=== PATIENT | male | born 1970 | race Caucasian/White ===

== ENCOUNTER 2016-09-21 20:04 | Emergency (ER) | payer SELFPAY ==
[2016-09-21 20:45] LABS: ABSOLUTE EOSINOPHILS # (AUTO) 0.1 10^3/uL (0.0-0.6); ABSOLUTE LYMPHOCYTES (AUTO) 0.9 10^3/uL (0.5-4.7); ABSOLUTE MONOCYTES (AUTO) 0.5 10^3/uL (0.1-1.4); BASOPHILS % (AUTO) 0.9 % (0-2); EOSINOPHILS % (AUTO) 1.5 % (0-6); HEMATOCRIT 48.8 % (37.9-51.0); HEMOGLOBIN 16.9 g/dL (13.5-17.0); HGB HCT DIFFERENCE 1.9; LYMPHOCYTES % (AUTO) 15.7 % (13-45); MEAN CORPUSCULAR HEMOGLOBIN 35.5 pg (27.0-33.4); MEAN CORPUSCULAR HGB CONC 34.5 g/dL (32.0-36.0); MEAN CORPUSCULAR VOLUME 103 fl (80-97); MONOCYTES % (AUTO) 8.7 % (3-13); RED BLOOD COUNT 4.74 10^6/uL (4.35-5.55); RED CELL DISTRIBUTION WIDTH 12.9 % (11.5-14.0); SEGMENTED NEUTROPHILS % (AUTO) 73.2 % (42-78); WHITE BLOOD COUNT 5.4 10^3/uL (4.0-10.5)
[2016-09-21 21:00] LABS: ALANINE AMINOTRANSFERASE 40 U/L (21-72); ALBUMIN 3.2 g/dL (3.5-5.0); ALKALINE PHOSPHATASE 118 U/L (38-126); ANION GAP 12 (5-19); ASPARTATE AMINO TRANSFERASE 97 U/L (17-59); BILIRUBIN,DIRECT 1.1 mg/dL (0.0-0.3); BLOOD UREA NITROGEN 8 mg/dL (7-20); CALCIUM 8.6 mg/dL (8.4-10.2); CARBON DIOXIDE 20 mmol/L (22-30); CHLORIDE 104 mmol/L (98-107); CREATININE RESULT 0.54 mg/dL (0.52-1.25); GLUCOSE 131 mg/dL (75-110); MAGNESIUM 1.3 mg/dL (1.6-2.3); POTASSIUM 3.5 mmol/L (3.6-5.0); SODIUM 135.8 mmol/L (137-145); TOTAL PROTEIN 7.5 g/dL (6.3-8.2)
[2016-09-21 21:01] LABS: ALCOHOL < 10 mg/dL (NONE DETECTED)
[2016-09-21] MEDS ORDERED: MAGNESIUM OXIDE 400 MG TABLET PO ONE (21:59)
--- NOTE | 2016-09-21 22:11 | ER Document Report ---
[id number] SEIZURE Mode of Arrival: Medic Information source: Patient, Relative Notes: 46-year-old male history of ALS presents after a 5-10 second episode where his body tensed up became minimally responsive and bit his tongue. notes that he immediately came out of this episode and was groggy. This postictal state lasted about 5-10 minutes. Patient on arrival has no complaints at all denies any headaches or any other pain elsewhere. Patient does note that he drinks daily and drank today. Patient denies drinking less than normal. Patient denies any other medication use or discontinuation of - HPI Onset: Just prior to arrival Onset/Duration: Sudden Quality of pain: No pain Severity: Mild Pain Level: Denies Associated symptoms: Other Exacerbated by: Denies Relieved by: Denies Similar symptoms previously: No Recently seen / treated by doctor: No Past Medical History - Social History Smoking Status: Never Smoker Cigarette use (# per day): No Chew tobacco use (# tins/day): No Smoking Education Provided: No Frequency of alcohol use: Heavy Family History: Reviewed & Not Pertinent Past Surgical History: Reports: Hx Appendectomy - Immunizations Hx Diphtheria, Pertussis, Tetanus Vaccination: Yes - 7 yrs Review of Systems - Review of Systems Notes: REVIEW OF SYSTEMS: CONSTITUTIONAL : Denies fever, chills, or sweats. Denies recent illness. EENT: Biting tongue CARDIOVASCULAR: Denies chest pain. Denies palpitations or racing or irregular heart beat. Denies ankle edema. RESPIRATORY: Denies cough, cold, or chest congestion. Denies shortness of breath, difficulty breathing, or wheezing. GASTROINTESTINAL: Denies abdominal pain or distention. Denies nausea, vomiting , or diarrhea. Denies blood in vomitus, stools, or per rectum. Denies black, tarry stools. Denies constipation. GENITOURINARY: Denies difficulty urinating, painful urination, burning, frequency, blood in urine, or discharge. MUSCULOSKELETAL: Denies back or neck pain or stiffness. Denies joint pain or swelling. SKIN: Denies rash, lesions or sores. HEMATOLOGIC : Denies easy bruising or bleeding. LYMPHATIC: Denies swollen, enlarged glands. NEUROLOGICAL: Seizure like activity PSYCHIATRIC: Denies anxiety or stress. Denies depression, suicidal ideation, or homicidal ideation. ALL OTHER SYSTEMS REVIEWED AND NEGATIVE. Dictation was performed using Dragon voice recognition software PHYSICAL EXAMINATION: GENERAL: Well-appearing, well-nourished and in no acute distress. HEAD: Atraumatic, normocephalic. EYES: Pupils equal round and reactive to light, extraocular movements intact, sclera anicteric, conjunctiva are normal. ENT: Superficial tongue laceration on the right superior aspect of the tongue. NECK: Normal range of motion, supple without lymphadenopathy LUNGS: Breath sounds clear to auscultation bilaterally and equal. No wheezes rales or rhonchi. HEART: Regular rate and rhythm without murmurs ABDOMEN: Soft, nontender, nondistended abdomen. No guarding, no rebound. No masses appreciated. Musculoskeletal: Normal range of motion, no pitting or edema. No cyanosis. NEUROLOGICAL: Cranial nerves grossly intact. Normal speech, normal gait. Normal sensory, motor exams chronic weakness PSYCH: Normal mood, normal affect. SKIN: Warm, Dry, normal turgor, no rashes or lesions noted. Physical Exam - Vital signs Vitals: Temp 98.5 F 09/21/16 20:21 Course - Re-evaluation Re-evalutation: 09/21/16 22:09 Patient is instructed regarding seizure precautions, he is noted to be hypomagnesemia, this has been given to him. Patient is also been instructed about his other abnormal lab values and will be given GI follow-up. He has no abdominal pain or any other abdominal concerns at this time Patient has a neurologist and states he will follow-up with the neurologist. After performing a Medical Screening Examination, I estimate there is LOW risk for INTRACRANIAL HEMORRHAGE, ISCHEMIC CVA, MALIGNANT DYSRHYTHMIA, ACUTE CORONARY SYNDROME, MENINGITIS, PULMONARY EMBOLISM, or SEPSIS thus I consider the discharge disposition reasonable. The patient and I have discussed the diagnosis and risks, and we agree with discharging home with close follow-up with the understanding that symptoms and presentations can change. We also discussed returning to the Emergency Department immediately if new or worsening symptoms occur. We have discussed the symptoms which are most concerning (e.g., changing or worsening pain, weakness, vomiting, fever) that necessitate immediate return. 09/21/16 23:24 - Vital Signs Vital signs: Temp Pulse Resp BP Pulse Ox 98.3 F 18 147/91 H 95 09/21/16 22:00 09/21/16 22:01 09/21/16 22:00 09/21/16 22:01 - Laboratory Result Diagrams: 09/21/16 20:25 09/21/16 20:25 Laboratory results interpreted by me: 09/21/16 09/21/16 20:25 20:25 MCV 103 H MCH 35.5 H Plt Count 78 L Sodium 135.8 L Potassium 3.5 L Carbon Dioxide 20 L Glucose 131 H Magnesium 1.3 L Total Bilirubin 6.0 H Direct Bilirubin 1.1 H AST 97 H Albumin 3.2 L - Diagnostic Test Radiology reviewed: Image reviewed, Reports reviewed Discharge - Discharge Clinical Impression: Seizure, Hypomagnesemia, Elevated bilirubin Tongue injury Qualifiers: Encounter type: initial encounter Qualified Code(s): S09.93XA - Unspecified injury of face, initial encounter Condition: Stable Disposition: HOME, SELF-CARE Instructions: New Seizure ([facility]) Additional Instructions: You must be reevaluated for your magnesium level as well as your bilirubin. Return immediately if there is any other concerns Referrals: MARILU MEDELLIN MD [ACTIVE STAFF] - Follow up in 3-5 days
[2016-09-21 22:39] VITALS: BP 147/91
== END 2016-09-21 22:22 | disposition home or self-care (01) ==
LOC: ER 20:04
DX: R56.9 Unspecified convulsions (principal); S09.93XA Unspecified injury of face, initial encounter; E83.42 Hypomagnesemia; E80.6 Other disorders of bilirubin metabolism; X58.XXXA Exposure to other specified factors, initial encounter
CPT/HCPCS: 36415; 70450; 80053; 80307; 83735; 85025; 99284

== ENCOUNTER 2017-02-24 12:03 | Inpatient (IN) | payer BC, OTHER ==
[2017-02-24] MEDS ORDERED: NORMAL SALINE 1000 ML 1,000 ML IV ONE (12:26)
--- NOTE | 2017-02-24 12:30 | ER Document Report ---
ED Medical Screen (RME) - General Chief Complaint: Jaundice Stated Complaint: WEAKNESS Time Seen by Provider: 02/24/17 12:25 Mode of Arrival: Wheelchair Information source: Patient, Relative TRAVEL OUTSIDE OF THE [place] IN LAST 30 DAYS: No - HPI Patient complains to provider of: jaundice/weakness Onset: Other - relative states that pt. has been drinking alcohol heavily until yesterday. Has had jaundice for the past 3 weeks. - Related Data Allergies/Adverse Reactions: No Known Allergies Allergy (Verified 02/24/17 12:12) Past Medical History Renal/ Medical History: Denies: Hx Peritoneal Dialysis Past Surgical History: Reports: Hx Appendectomy - Immunizations Hx Diphtheria, Pertussis, Tetanus Vaccination: Yes - 7 yrs Physical Exam - Vital signs Vitals: Temp Pulse Resp BP Pulse Ox 97.5 F 71 16 102/49 L 97 02/24/17 12:11 02/24/17 12:11 02/24/17 12:11 02/24/17 12:11 02/24/17 12:11 Course - Vital Signs Vital signs: Temp Pulse Resp BP Pulse Ox 97.5 F 71 16 102/49 L 97 02/24/17 12:11 02/24/17 12:11 02/24/17 12:11 02/24/17 12:11 02/24/17 12:11
--- NOTE | 2017-02-24 13:14 | ER Document Report ---
ED General - General Chief Complaint: Jaundice Stated Complaint: WEAKNESS Time Seen by Provider: 02/24/17 12:25 Mode of Arrival: Wheelchair Notes: Patient is here to be evaluated for jaundice which he and the family say has been present for about 3 weeks. Patient is a heavy alcohol drinker, and just drank most recently yesterday. For the past 3 days, the patient has become confused and disoriented. Patient was told he has liver disease when he was seen here about 3 months ago for a seizure which was felt to be due to lack of alcohol in his system and a withdrawal symptom. Patient notes that he has abdominal distention. Patient has a history of ALS, diagnosed in 1997, so he has a slowly progressing variant. It has begun to affect his walking and use of his hands. TRAVEL OUTSIDE OF THE [place] IN LAST 30 DAYS: No - Related Data Allergies/Adverse Reactions: No Known Allergies Allergy (Verified 02/24/17 12:12) Home Medications: Current Home Medications Aspirin 1 tab PO DAILY 02/24/17 [History] Past Medical History - General Information source: Patient, Relative - Social History Smoking Status: Never Smoker Chew tobacco use (# tins/day): No Frequency of alcohol use: Heavy Drug Abuse: None Family History: Reviewed & Not Pertinent Neurological Medical History: Reports: Other - History of ALS, first diagnosed in 1997. Past Surgical History: Reports: Hx Appendectomy - Immunizations Hx Diphtheria, Pertussis, Tetanus Vaccination: Yes - 7 yrs Review of Systems - Review of Systems Notes: REVIEW OF SYSTEMS: CONSTITUTIONAL : Denies fever. EENT: Denies eye, ear, nose or mouth or throat pain or other symptoms. CARDIOVASCULAR: Denies chest pain. RESPIRATORY: Denies cough, chest congestion, or shortness of breath. GASTROINTESTINAL: Denies nausea, vomiting, or diarrhea. Abdomen is distended. Has not passed any blood in the stools or vomited any blood. GENITOURINARY: Denies difficulty or painful urinating, urinary frequency, blood in urine. MUSCULOSKELETAL: Denies back or neck pain. Denies joint pain or swelling. SKIN: Jaundiced skin and sclera. Denies rash or skin lesions. NEUROLOGICAL: Denies LOC or altered mental status. Denies headache. Denies sensory loss or motor deficits. ALL OTHER SYSTEMS REVIEWED AND NEGATIVE. Physical Exam - Vital signs Vitals: Temp Pulse Resp BP Pulse Ox 97.5 F 71 16 102/49 L 97 02/24/17 12:11 02/24/17 12:11 02/24/17 12:11 02/24/17 12:11 02/24/17 12:11 Interpretation: Normal - Notes Notes: PHYSICAL EXAMINATION: GENERAL: In no acute distress. Generalized jaundice color to the skin throughout the patient's body. Marked icterus of the sclera bilaterally. HEAD: Atraumatic, normocephalic. No head trauma. EYES: Pupils equal round and reactive to light, extraocular movements intact. ENT: oropharynx clear without exudates. Moist mucous membranes. NECK: Normal range of motion, supple. LUNGS: Breath sounds clear and equal bilaterally. HEART: Regular rate and rhythm without murmurs. ABDOMEN: Distended, most likely ascites. Unable to palpate the liver. No guarding or rebound. BACK: No tenderness throughout entire back. EXTREMITIES: Normal range of motion without pain. NEUROLOGICAL: Speech is somewhat slurred and at times confused. Gait not tested. Normal sensory, motor, and reflex exams. Awake, alert. Cranial nerves normal. SKIN: Warm, dry, no rashes. Course - Re-evaluation Re-evalutation: 02/24/17 20:10 Discussed patient with hospitalist who will admit the patient. - Vital Signs Vital signs: Temp Pulse Resp BP Pulse Ox 97.5 F 71 18 106/64 98 02/24/17 12:11 02/24/17 12:11 02/24/17 18:01 02/24/17 18:01 02/24/17 18:01 - Laboratory Result Diagrams: 02/24/17 13:35 02/24/17 13:35 Laboratory results interpreted by me: 02/24/17 02/24/17 02/24/17 12:45 13:35 13:35 Hgb 17.3 H MCV 103 H MCH 37.1 H MCHC 36.2 H RDW 15.3 H Plt Count 64 L Seg Neutrophils % 81.6 H Lymphocytes % 5.6 L Absolute Neutrophils 8.4 H PT Sodium 127.8 L Potassium 2.5 L* Chloride 86 L BUN 63 H Creatinine 5.53 H Est GFR ( Amer) 13 L Est GFR (Non-Af Amer) 11 L Calcium 8.3 L Total Bilirubin 46.7 H Direct Bilirubin 42.0 H AST 152 H Alkaline Phosphatase 232 H Ammonia Creatine Kinase 310 H Total Protein 9.0 H Albumin 3.4 L Lipase 547.9 H Urine Blood MODERATE H Urine Bilirubin MODERATE H Urine Urobilinogen 4.0 H 02/24/17 02/24/17 13:35 13:35 Hgb MCV MCH MCHC RDW Plt Count Seg Neutrophils % Lymphocytes % Absolute Neutrophils PT 28.0 H Sodium Potassium Chloride BUN Creatinine Est GFR ( Amer) Est GFR (Non-Af Amer) Calcium Total Bilirubin Direct Bilirubin AST Alkaline Phosphatase Ammonia 76.7 H Creatine Kinase Total Protein Albumin Lipase Urine Blood Urine Bilirubin Urine Urobilinogen - EKG Interpretation by Mn EKG shows normal: Sinus rhythm Rate: Normal Rhythm: NSR Discharge - Discharge Clinical Impression: Jaundice Liver failure Qualifiers: Liver failure chronicity: acute Hepatic coma status: without hepatic coma Qualified Code(s): K72.00 - Acute and subacute hepatic failure without coma Admitting Provider: Hospitalist Unit Admitted: [facility]
[2017-02-24 13:19] LABS: APPEARANCE,URINE CLOUDY; BILIRUBIN,URINE MODERATE (NEGATIVE); GLUCOSE, URINE NEGATIVE (NEGATIVE); KETONES,URINE NEGATIVE (NEGATIVE); LEUKOCYTE ESTERASE,URINE NEGATIVE (NEGATIVE); NITRITE,URINE NEGATIVE (NEGATIVE); PROTEIN,URINE NEGATIVE (NEGATIVE); URINE SPECIFIC GRAVITY 1.009
[2017-02-24 13:38] LABS: URINE BARBITURATES SCREEN NEGATIVE; URINE METHADONE SCREEN NEGATIVE; URINE OPIATES LOW NEGATIVE; URINE PHENCYCLIDINE SCREEN NEGATIVE
[2017-02-24 14:10] LABS: ALANINE AMINOTRANSFERASE 34 U/L (21-72); ALBUMIN 3.4 g/dL (3.5-5.0); ALKALINE PHOSPHATASE 232 U/L (38-126); ANION GAP 19 (5-19); ASPARTATE AMINO TRANSFERASE 152 U/L (17-59); BLOOD UREA NITROGEN 63 mg/dL (7-20); CALCIUM 8.3 mg/dL (8.4-10.2); CARBON DIOXIDE 23 mmol/L (22-30); CHLORIDE 86 mmol/L (98-107); CREATINE KINASE 310 U/L (55-170); CREATININE RESULT 5.53 mg/dL (0.52-1.25); GLUCOSE 96 mg/dL (75-110); LIPASE 547.9 U/L (23-300); SODIUM 127.8 mmol/L (137-145)
[2017-02-24 14:11] LABS: ABSOLUTE BASOPHILS # (AUTO) 0.1 10^3/uL (0.0-0.2); ABSOLUTE EOSINOPHILS # (AUTO) 0.2 10^3/uL (0.0-0.6); ABSOLUTE LYMPHOCYTES (AUTO) 0.6 10^3/uL (0.5-4.7); ABSOLUTE NEUT (AUTO) 8.4 10^3/uL (1.7-8.2); ALCOHOL < 10 mg/dL (NONE DETECTED); BASOPHILS % (AUTO) 0.9 % (0-2); EOSINOPHILS % (AUTO) 2.3 % (0-6); HEMATOCRIT 47.7 % (37.9-51.0); HEMOGLOBIN 17.3 g/dL (13.5-17.0); LYMPHOCYTES % (AUTO) 5.6 % (13-45); MEAN CORPUSCULAR HEMOGLOBIN 37.1 pg (27.0-33.4); MEAN CORPUSCULAR HGB CONC 36.2 g/dL (32.0-36.0); MEAN CORPUSCULAR VOLUME 103 fl (80-97); MONOCYTES % (AUTO) 9.6 % (3-13); RED BLOOD COUNT 4.65 10^6/uL (4.35-5.55); RED CELL DISTRIBUTION WIDTH 15.3 % (11.5-14.0); SEGMENTED NEUTROPHILS % (AUTO) 81.6 % (42-78); WHITE BLOOD COUNT 10.3 10^3/uL (4.0-10.5)
[2017-02-24 14:18] LABS: HGB HCT DIFFERENCE 4.2
[2017-02-24 14:24] LABS: CREATINE KINASE MB 2.84 ng/mL (<4.55); TROPONIN I < 0.012 ng/mL
[2017-02-24 14:59] LABS: POTASSIUM 2.5 mmol/L (3.6-5.0)
--- NOTE | 2017-02-24 15:03 | RADIOLOGY REPORT (SQ) ---
EXAM DESCRIPTION: CHEST PA/LAT COMPLETED DATE/TIME: 02/24/2017 2:48 pm REASON FOR STUDY: Jaundiced COMPARISON: May 2012 EXAM PARAMETERS: NUMBER OF VIEWS: two views TECHNIQUE: Digital Frontal and Lateral radiographic views of the chest acquired. RADIATION DOSE: NA LIMITATIONS: Patient has made a shallow inspiration. FINDINGS: LUNGS AND PLEURA: No opacities, masses or pneumothorax. No pleural effusion. MEDIASTINUM AND HILAR STRUCTURES: No masses or contour abnormalities. HEART AND VASCULAR STRUCTURES: Heart normal size. No evidence for failure. BONES: No acute findings. HARDWARE: None in the chest. OTHER: No other significant finding. IMPRESSION: NO SIGNIFICANT RADIOGRAPHIC FINDING IN THE CHEST. TECHNICAL DOCUMENTATION: JOB ID: [id number] [employer]- All Rights Reserved
[2017-02-24 15:13] LABS: BILIRUBIN,TOTAL 46.7 mg/dL (0.2-1.3)
[2017-02-24] MEDS ORDERED: POTASSIUM CHLORIDE 10 MEQ TABLET.SA PO ONE ×2 (15:31→16:21)
[2017-02-24] MEDS ORDERED: ONDANSETRON HCL INJ/PF 4 MG/2 ML SDV IV PRN (16:11)
[2017-02-24] MEDS ORDERED: DIAZEPAM 5 MG TABLET PO ONE (16:17)
[2017-02-24] MEDS ORDERED: FOLIC ACID 1 MG TABLET PO ONE (16:17)
[2017-02-24] MEDS ORDERED: THIAMINE HCL 100 MG TABLET PO ONE (16:17)
[2017-02-24] MEDS ORDERED: LORAZEPAM INJ 2 MG/1 ML VIAL IV PRN (16:18)
--- NOTE | 2017-02-24 16:22 | RADIOLOGY REPORT (SQ) ---
EXAM DESCRIPTION: CT ABD/PELVIS NO ORAL OR IV COMPLETED DATE/TIME: 02/24/2017 3:44 pm REASON FOR STUDY: abd pain/jaundice COMPARISON: None. TECHNIQUE: CT scan of the abdomen and pelvis performed without intravenous or oral contrast. Images reviewed with lung, soft tissue, and bone windows. Reconstructed coronal and sagittal MPR images revi ewed. All images stored on PACS. All CT scanners at this facility use dose modulation, iterative reconstruction, and/or weight based d osing when appropriate to reduce radiation dose to as low as reasonably achievable (ALARA). [facility]: Dose Right [facility]: CareDose [facility]: Dose Right [facility]: Teradose 4D [facility]: Smart HALO2CLOUD RADIATION DOSE: Up-to-date CT equipment and radiation dose reduction techniques were employed. CTDIv ol: 13.8 - 15.5 mGy. DLP: 1050 mGy-cm.mGy. LIMITATIONS: None. FINDINGS: LOWER CHEST: Subsegmental atelectasis in the left lower lobe. NON-CONTRASTED LIVER, SPLEEN, ADRENALS: Evaluation limited by lack of IV contrast. No identified sign ificant masses. PANCREAS: No masses. No peripancreatic inflammatory changes. GALLBLADDER: No identified stones by CT criteria. No inflammatory changes to suggest cholecystitis. RIGHT KIDNEY AND URETER: No suspicious masses. Assessment limited by lack of IV contrast. There is a nonobstructing 6 mm lower calyceal calculus. No hydronephrosis or hydroureter. LEFT KIDNEY AND URETER: No suspicious masses. Assessment limited by lack of IV contrast. No signifi cant calcifications. No hydronephrosis or hydroureter. AORTA AND RETROPERITONEUM: No aneurysm. No retroperitoneal masses or adenopathy. BOWEL AND PERITONEAL CAVITY: Questionable thickening of the wall of the colon. Considerable ascites is present. APPENDIX: Not identified. PELVIS, BLADDER, AND ABDOMINAL WALL:Urinary bladder is normal. Prostate gland and seminal vesicles a re unremarkable. BONES: Schmorl's node in the superior endplate of L4. OTHER: No other significant finding. IMPRESSION: 1. Subsegmental atelectasis in the left lower lobe. 2. Nonobstructing 6 mm lower calyceal calculus right kidney. 3. No ureteral stone or obstruction. 4. Considerable ascites is present. TECHNICAL DOCUMENTATION: JOB ID: [id number] Quality ID # [id number]: Final reports with documentation of one or more dose reduction techniques (e.g., Au tomated exposure control, adjustment of the mA and/or kV according to patient size, use of iterative reconstruction technique) 2010 [employer]- All Rights Reserved
[2017-02-24] MEDS ORDERED: PHYTONADIONE 5 MG TABLET PO ONE (16:45)
[2017-02-24] MEDS: LANSOPRAZOLE 15 MG TAB.RAP.DR PO SCH (16:52)
[2017-02-24] MEDS: NORMAL SALINE 1000 ML 1,000 ML IV PRN (16:53)
[2017-02-24] MEDS: LACTULOSE SYRUP 20 GM/30 ML UDCUP PO SCH (17:58)
[2017-02-24] MEDS: DIAZEPAM 5 MG TABLET PO SCH ×2 (17:58→23:40)
--- NOTE | 2017-02-24 19:12 | PDOC H&P ---
History of Present Illness Admission Date/PCP: 02/24/17 16:12 NO PCP History of Present Illness: MELIZA ARANDA is a 46 year old male with past medical history significant for ALS reportedly diagnosed in 1997 who presents to the emergency department with jaundice and lethargy. Patient's reports that he has been jaundiced for the last several weeks and the last 5 days he has been having extensive abdominal distention. His last drink was last night. He normally drinks between 3/4-1/3 of half gallon of vodka daily. She has noted significant weakness and falling. As well as alteration in mentation. History is primarily obtained from her as he is delayed with responding. He is referred to hospital service for liver failure. Past Medical History Past Medical History: Yuliana Gehrig's disease GI Medical History: Reports: Cirrhosis Past Surgical History Past Surgical History: Reports: Appendectomy Social History Smoking Status: Never Smoker Frequency of Alcohol Use: Heavy Amount of Alcoholic Beverages Per Day: 1/3-3/4 of 1/2 gal of vodka Hx Recreational Drug Use: No Hx Prescription Drug Abuse: No - Advance Directive Resuscitation Status: Do Not Resuscitate Surrogate healthcare decision maker:: , Nehemias Aranda Family History Family History: CAD, Other - als, etoh Parental Family History Reviewed: Yes Children Family History Reviewed: Yes Sibling(s) Family History Reviewed.: Yes Medication/Allergy Home Medications: Aspirin 1 tab PO DAILY 02/24/17 Allergies/Adverse Reactions: No Known Allergies Allergy (Verified 02/24/17 12:12) Review of Systems Constitutional: PRESENT: anorexia, weight gain. ABSENT: chills, fever(s), headache(s), weight loss Eyes: ABSENT: visual disturbances Ears: ABSENT: hearing changes Cardiovascular: PRESENT: dyspnea on exertion. ABSENT: chest pain, edema, orthropnea, palpitations Respiratory: PRESENT: dyspnea. ABSENT: cough, hemoptysis Gastrointestinal: PRESENT: abdominal pain, bloating, melena, nausea. ABSENT: constipation, diarrhea, dysphagia, hematemesis, hematochezia, vomiting Genitourinary: ABSENT: dysuria, hematuria Musculoskeletal: PRESENT: muscle weakness. ABSENT: joint swelling Integumentary: PRESENT: as per HPI. ABSENT: rash, wounds Neurological: PRESENT: abnormal movements, frequent falls. ABSENT: abnormal gait, abnormal speech, confusion, dizziness, focal weakness, syncope Psychiatric: ABSENT: anxiety, depression, homidical ideation, suicidal ideation Endocrine: ABSENT: cold intolerance, heat intolerance, polydipsia, polyuria Hematologic/Lymphatic: ABSENT: easy bleeding, easy bruising Physical Exam Vital Signs: Temp Pulse Resp BP Pulse Ox 97.5 F 71 18 132/73 H 97 02/24/17 12:11 02/24/17 12:11 02/24/17 17:01 02/24/17 17:01 02/24/17 17:01 General appearance: PRESENT: severe distress Head exam: PRESENT: atraumatic, normocephalic Eye exam: PRESENT: EOMI, PERRLA, scleral icterus Ear exam: PRESENT: normal external ear exam Mouth exam: PRESENT: dry mucosa, tongue midline Neck exam: ABSENT: JVD, lymphadenopathy, thyromegaly, tracheal deviation Respiratory exam: PRESENT: clear to auscultation keiko, symmetrical, unlabored. ABSENT: crackles, rales, rhonchi, tachypnea, wheezes Cardiovascular exam: PRESENT: RRR, +S1, +S2. ABSENT: diastolic murmur, gallop, rubs, systolic murmur Pulses: PRESENT: +1 pedal pulses bilateral Vascular exam: PRESENT: normal capillary refill GI/Abdominal exam: PRESENT: ascites, distended, hypoactive bowel sounds, soft. ABSENT: firm, guarding, hernia, mass, Iqbal's sign, organolmegaly, rebound, rigid, tenderness Rectal exam: PRESENT: deferred Extremities exam: PRESENT: full ROM, +2 edema. ABSENT: calf tenderness, clubbing Neurological exam: PRESENT: alert, awake, oriented to person, oriented to place , oriented to situation, ataxia, CN II-XII grossly intact. ABSENT: oriented to time, reflexes normal - asterixis, motor sensory deficit Psychiatric exam: PRESENT: appropriate affect, flat affect, normal mood. ABSENT : homicidal ideation, suicidal ideation Skin exam: PRESENT: dry, intact, jaundice, petechiae - on chest, palmar erythema , warm. ABSENT: cyanosis, rash Results Laboratory Results: 02/24/17 02/24/17 02/24/17 12:45 13:35 13:35 WBC 10.3 Hgb 17.3 H Hct 47.7 MCV 103 H MCH 37.1 H Plt Count 64 L INR Sodium 127.8 L Potassium 2.5 L* Chloride 86 L Carbon Dioxide 23 Anion Gap 19 BUN 63 H Creatinine 5.53 H Glucose 96 Calcium 8.3 L Magnesium Total Bilirubin 46.7 H Direct Bilirubin 42.0 H AST 152 H ALT 34 Alkaline Phosphatase 232 H Ammonia Creatine Kinase 310 H Troponin I Total Protein 9.0 H Albumin 3.4 L Lipase 547.9 H Urine Blood MODERATE H Urine Bilirubin MODERATE H Urine Urobilinogen 4.0 H Serum Alcohol < 10 02/24/17 02/24/17 02/24/17 13:35 13:35 13:35 WBC Hgb Hct MCV MCH Plt Count INR 2.46 Sodium Potassium Chloride Carbon Dioxide Anion Gap BUN Creatinine Glucose Calcium Magnesium Total Bilirubin Direct Bilirubin AST ALT Alkaline Phosphatase Ammonia 76.7 H Creatine Kinase Troponin I < 0.012 Total Protein Albumin Lipase Urine Blood Urine Bilirubin Urine Urobilinogen Serum Alcohol 02/24/17 13:35 WBC Hgb Hct MCV MCH Plt Count INR Sodium Potassium Chloride Carbon Dioxide Anion Gap BUN Creatinine Glucose Calcium Magnesium 2.3 Total Bilirubin Direct Bilirubin AST ALT Alkaline Phosphatase Ammonia Creatine Kinase Troponin I Total Protein Albumin Lipase Urine Blood Urine Bilirubin Urine Urobilinogen Serum Alcohol Impressions: Abdomen/Pelvis CT 02/24/17 12:27 IMPRESSION: 1. Subsegmental atelectasis in the left lower lobe. 2. Nonobstructing 6 mm lower calyceal calculus right kidney. 3. No ureteral stone or obstruction. 4. Considerable ascites is present. Chest X-Ray 02/24/17 13:09 IMPRESSION: NO SIGNIFICANT RADIOGRAPHIC FINDING IN THE CHEST. Assessment & Plan - Diagnosis (1) Liver failure Qualifiers: Liver failure chronicity: acute Hepatic coma status: without hepatic coma Qualified Code(s): K72.00 - Acute and subacute hepatic failure without coma Is this a current diagnosis for this admission?: YesPlan: Patient is in fulminant hepatic failure. Patient's meld score is 44. Have discussed the implications of this with his and patient who at this time elects to be DNR and does not want dialysis. Will place palliative care consult. (2) Hepatorenal syndrome Is this a current diagnosis for this admission?: YesPlan: Make an attempt at gentle hydration, however complex in the setting of ascites. Family does not want dialysis. (3) Acute renal failure Qualifiers: Acute renal failure type: unspecified Qualified Code(s): N17.9 - Acute kidney failure, unspecified Is this a current diagnosis for this admission?: Yes (4) Alcohol abuse Is this a current diagnosis for this admission?: YesPlan: Place patient on scheduled Valium and as needed Ativan. Thiamine, folic acid, and monitor for arrhythmia. (5) ALS (amyotrophic lateral sclerosis) Is this a current diagnosis for this admission?: YesPlan: Patient reports a diagnosis of ALS in 1997. Patient is having facial twitching. (6) Hepatic encephalopathy Is this a current diagnosis for this admission?: YesPlan: Place patient on lactulose 20 mg p.o. 3 times daily (7) Coagulopathy Is this a current diagnosis for this admission?: YesPlan: Place patient on oral vitamin K (8) Hyponatremia Is this a current diagnosis for this admission?: YesPlan: Secondary to intravascular volume depletion in the setting of ascites. (9) Hypokalemia Is this a current diagnosis for this admission?: YesPlan: Give oral repletion. 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
[2017-02-25] MEDS: LANSOPRAZOLE 15 MG TAB.RAP.DR PO SCH (05:21)
[2017-02-25] MEDS: DIAZEPAM 5 MG TABLET PO SCH ×4 (05:21→23:35)
[2017-02-25 05:37] LABS: HEMATOCRIT 42.6 % (37.9-51.0); MEAN CORPUSCULAR HEMOGLOBIN 37.3 pg (27.0-33.4); MEAN CORPUSCULAR HGB CONC 35.8 g/dL (32.0-36.0); MEAN CORPUSCULAR VOLUME 104 fl (80-97); RED BLOOD COUNT 4.09 10^6/uL (4.35-5.55); RED CELL DISTRIBUTION WIDTH 15.2 % (11.5-14.0); WHITE BLOOD COUNT 9.5 10^3/uL (4.0-10.5)
[2017-02-25 05:45] LABS: PROTHROMBIN TIME 30.7 SEC (11.4-15.4)
[2017-02-25 06:43] LABS: BAND NEUTROPHILS % (MANUAL) 1 % (3-5); BASOPHILS % (MANUAL) 0 % (0-2); EOSINOPHILS % (MANUAL) 5 % (0-6); LYMPHOCYTES % (MANUAL) 10 % (13-45); TOTAL CELLS COUNTED 100
[2017-02-25 06:49] LABS: ROULEAUX SLIGHT; TOXIC GRANULATION 1+; TOXIC VACUOLATION PRESENT
[2017-02-25 06:51] LABS: ANISOCYTOSIS 1+; BURR CELLS 2+; POIKILOCYTOSIS 2+; TARGET CELLS SLIGHT; TEAR DROP CELLS 1+
[2017-02-25 07:08] LABS: ALANINE AMINOTRANSFERASE 49 U/L (21-72); ALBUMIN 2.8 g/dL (3.5-5.0); ALKALINE PHOSPHATASE 177 U/L (38-126); ANION GAP 17 (5-19); ASPARTATE AMINO TRANSFERASE 115 U/L (17-59); BLOOD UREA NITROGEN 66 mg/dL (7-20); CALCIUM 7.7 mg/dL (8.4-10.2); CARBON DIOXIDE 20 mmol/L (22-30); CHLORIDE 91 mmol/L (98-107); CREATININE RESULT 5.16 mg/dL (0.52-1.25); GLUCOSE 83 mg/dL (75-110); MAGNESIUM 2.1 mg/dL (1.6-2.3); PHOSPHORUS 5.8 mg/dL (2.5-4.5); SODIUM 128.3 mmol/L (137-145); TOTAL PROTEIN 7.9 g/dL (6.3-8.2)
[2017-02-25 07:12] LABS: HEMOGLOBIN 15.2 g/dL (13.5-17.0)
[2017-02-25 07:41] LABS: BILIRUBIN,DIRECT 36.3 mg/dL (0.0-0.4); BILIRUBIN,TOTAL 40.5 mg/dL (0.2-1.3)
[2017-02-25 07:45] LABS: POTASSIUM 2.6 mmol/L (3.6-5.0)
[2017-02-25] MEDS ORDERED: PHYTONADIONE 5 MG TABLET PO SCH (10:00)
[2017-02-25] MEDS ORDERED: FOLIC ACID 1 MG TABLET PO SCH (10:00)
[2017-02-25] MEDS ORDERED: THIAMINE HCL 100 MG TABLET PO SCH (10:00)
[2017-02-25] MEDS: LACTULOSE SYRUP 20 GM/30 ML UDCUP PO SCH ×3 (12:18→19:28)
[2017-02-25] MEDS: POTASSI CL 20 MEQ/50 ML RIDER 50 ML IV SCH ×3 (12:37→18:41)
--- NOTE | 2017-02-25 15:09 | PDOC PROGRESS REPORT ---
Subjective Progress Note for:: 02/25/17 Subjective:: Patient is drowsy but arousable. He is oriented to person and place but not time. Nursing reports very little urine output. Cannot obtain much review of systems from patient given hepatic encephalopathy. Physical Exam Vital Signs: Temp Pulse Resp BP Pulse Ox 97.4 F 82 18 115/60 97 02/25/17 12:04 02/25/17 12:04 02/25/17 12:04 02/25/17 12:04 02/25/17 12:04 Intake & Output 02/24/17 02/25/17 02/26/17 06:59 06:59 06:59 Intake Total 659 118 Output Total 0 Balance 659 118 Weight 105 kg GENERAL: No acute distress, overtly jaundiced HEENT: Conjunctiva clear, sclera icteric, moist mucous membranes, no JVD, midline trachea RESPIRATORY: Clear to auscultation bilaterally, no wheezes, no rhonchi CARDIAC: Regular rate and rhythm, no murmurs/gallops/rubs ABDOMEN: Soft, distended, nontender, positive bowel sounds, no rebound, no guarding EXTREMETIES: No edema, cyanosis, clubbing NEUROLOGIC: Alert, oriented to person/place/time, CN's grossly intact, no focal deficits SKIN: No rash, wounds PSYCH: Normal mood, normal affect Results Laboratory Results: 02/25/17 05:21 02/25/17 06:32 02/25/17 02/25/17 02/25/17 05:21 05:21 06:32 WBC 9.5 RBC 4.09 L Hgb 15.2 D Hct 42.6 MCV 104 H MCH 37.3 H MCHC 35.8 RDW 15.2 H Plt Count 50 L Seg Neutrophils % Not Reportable Lymphocytes % Not Reportable Monocytes % Not Reportable Eosinophils % Not Reportable Basophils % Not Reportable Absolute Neutrophils Not Reportable Absolute Lymphocytes Not Reportable Absolute Monocytes Not Reportable Absolute Eosinophils Not Reportable Absolute Basophils Not Reportable Sodium Cancelled 128.3 L Potassium Cancelled 2.6 L* Chloride Cancelled 91 L Carbon Dioxide Cancelled 20 L Anion Gap Cancelled 17 BUN Cancelled 66 H Creatinine Cancelled 5.16 H Est GFR ( Amer) Cancelled 15 L Est GFR (Non-Af Amer) Cancelled 12 L Glucose Cancelled 83 Calcium Cancelled 7.7 L Phosphorus Cancelled 5.8 H Magnesium Cancelled 2.1 Total Bilirubin Cancelled 40.5 H D AST Cancelled 115 H ALT Cancelled 49 Alkaline Phosphatase Cancelled 177 H Total Protein Cancelled 7.9 Albumin Cancelled 2.8 L Impressions: Abdomen/Pelvis CT 02/24/17 12:27 IMPRESSION: 1. Subsegmental atelectasis in the left lower lobe. 2. Nonobstructing 6 mm lower calyceal calculus right kidney. 3. No ureteral stone or obstruction. 4. Considerable ascites is present. Chest X-Ray 02/24/17 13:09 IMPRESSION: NO SIGNIFICANT RADIOGRAPHIC FINDING IN THE CHEST. Assessment & Plan - Diagnosis (1) Liver failure Qualifiers: Liver failure chronicity: acute Hepatic coma status: without hepatic coma Qualified Code(s): K72.00 - Acute and subacute hepatic failure without coma Is this a current diagnosis for this admission?: YesPlan: Patient has end-stage liver disease as indicated by MELD score 47 which represents 100% statistical 3 month mortality. This has been discussed at length with patient's and she accepts this. She is investigating hospice options. She will have to care for patient primarily by herself so I think possibly inpatient hospice would be most favorable option but I will leave that up to her. We have made patient DO NOT RESUSCITATE status and comfort measures only. (2) Hepatic encephalopathy Is this a current diagnosis for this admission?: YesPlan: Continue lactulose. (3) Acute renal failure Qualifiers: Acute renal failure type: unspecified Qualified Code(s): N17.9 - Acute kidney failure, unspecified Is this a current diagnosis for this admission?: YesPlan: Patient has not had urine output today. Continue IV fluids. I think prognosis is poor with regard to renal failure. (4) Alcohol abuse Is this a current diagnosis for this admission?: YesPlan: As needed IV Ativan. Continue scheduled Valium as well. (5) Coagulopathy Is this a current diagnosis for this admission?: Yes (6) Hypokalemia Is this a current diagnosis for this admission?: Yes (7) Hyponatremia Is this a current diagnosis for this admission?: Yes - Time Time Spent with patient: 35 or more minutes Anticipated discharge: Hospice Within: when bed available
[2017-02-26] MEDS: NORMAL SALINE 1000 ML 1,000 ML IV PRN (04:34)
[2017-02-26] MEDS: DIAZEPAM 5 MG TABLET PO SCH (05:10)
[2017-02-26] MEDS ORDERED: MORPHINE SULFATE 10 MG/ML INJ IV PRN (10:00)
--- NOTE | 2017-02-26 10:10 | PDOC PROGRESS REPORT ---
Subjective Progress Note for:: 02/26/17 Subjective:: Patient is somnolent and encephalopathic. He has had no agitation. He has had no seizure. He has very minimal urine output over the past 24 hours. Physical Exam Vital Signs: Temp Pulse Resp BP Pulse Ox 97.3 F 84 18 117/53 L 96 02/25/17 20:15 02/26/17 07:50 02/26/17 07:50 02/26/17 07:50 02/26/17 07:50 Intake & Output 02/25/17 02/26/17 02/27/17 06:59 06:59 06:59 Intake Total 659 1990 Output Total 0 Balance 659 1990 Weight 105 kg GENERAL: No acute distress, overtly jaundiced HEENT: Conjunctiva clear, sclera icteric, moist mucous membranes, no JVD, midline trachea RESPIRATORY: Clear to auscultation bilaterally, no wheezes, no rhonchi CARDIAC: Regular rate and rhythm, no murmurs/gallops/rubs ABDOMEN: Soft, distended, nontender, positive bowel sounds, no rebound, no guarding EXTREMETIES: No edema, cyanosis, clubbing NEUROLOGIC: Somnolent, minimally arousable, disoriented SKIN: No rash, wounds Results Laboratory Results: 02/25/17 05:21 02/25/17 06:32 Impressions: Abdomen/Pelvis CT 02/24/17 12:27 IMPRESSION: 1. Subsegmental atelectasis in the left lower lobe. 2. Nonobstructing 6 mm lower calyceal calculus right kidney. 3. No ureteral stone or obstruction. 4. Considerable ascites is present. Chest X-Ray 02/24/17 13:09 IMPRESSION: NO SIGNIFICANT RADIOGRAPHIC FINDING IN THE CHEST. Assessment & Plan - Diagnosis (1) Liver failure Qualifiers: Liver failure chronicity: acute Hepatic coma status: without hepatic coma Qualified Code(s): K72.00 - Acute and subacute hepatic failure without coma Is this a current diagnosis for this admission?: YesPlan: Patient has end-stage liver disease as indicated by MELD score 47 which represents 100% statistical 3 month mortality. This has been discussed at length with patient's and she accepts this. She is investigating hospice options. She will have to care for patient primarily by herself so I think possibly inpatient hospice would be most favorable option but I will leave that up to her. We have made patient DO NOT RESUSCITATE status and comfort measures only. Awaiting inpatient hospice. (2) Hepatic encephalopathy Is this a current diagnosis for this admission?: Yes (3) Acute renal failure Qualifiers: Acute renal failure type: unspecified Qualified Code(s): N17.9 - Acute kidney failure, unspecified Is this a current diagnosis for this admission?: YesPlan: Minimal urine output. (4) Alcohol abuse Is this a current diagnosis for this admission?: Yes (5) Coagulopathy Is this a current diagnosis for this admission?: Yes (6) Hypokalemia Is this a current diagnosis for this admission?: Yes (7) Hyponatremia Is this a current diagnosis for this admission?: Yes - Time Time Spent with patient: 15-24 minutes
[2017-02-26] MEDS: LORAZEPAM INJ 2 MG/1 ML VIAL IV PRN ×2 (10:54→17:57)
--- NOTE | 2017-02-26 16:14 | PDOC DISCHARGE SUMMARY ---
General - Admit/Disc Date/PCP Admission Date/Primary Care Provider: 02/24/17 16:12 Discharge Date: 02/26/17 - Discharge Diagnosis (1) Liver failure Is this a current diagnosis for this admission?: Yes (2) Hepatic encephalopathy Is this a current diagnosis for this admission?: Yes (3) Acute renal failure Is this a current diagnosis for this admission?: Yes (4) Alcohol abuse Is this a current diagnosis for this admission?: Yes (5) Coagulopathy Is this a current diagnosis for this admission?: Yes (6) Hypokalemia Is this a current diagnosis for this admission?: Yes (7) Hyponatremia Is this a current diagnosis for this admission?: Yes - Additional Information Resuscitation Status: Do Not Resuscitate Discharge Diet: Other (Comments) - comfort feeding Discharge Activity: Bedrest History of Present Illness History of Present Illness: MELIZA ARANDA is a 46 year old male Hospital Course Hospital Course: Patient was admitted with advanced/end-stage cirrhosis, hepatic encephalopathy, renal failure, coagulopathy. His condition did not improve during hospitalization. Given a meld score of 47 patient has 100% 3 month mortality. This was conveyed to his and she has decided on hospice placement. Patient is transferred to inpatient hospice. Patient is DO NOT RESUSCITATE. Palliative medications per hospice protocol. Physical Exam Vital Signs: Temp Pulse Resp BP Pulse Ox 97.3 F 80 18 106/54 L 96 02/25/17 20:15 02/26/17 14:00 02/26/17 11:28 02/26/17 11:28 02/26/17 11:28 Intake & Output 02/25/17 02/26/17 02/27/17 06:59 06:59 06:59 Intake Total 659 1990 Output Total 0 Balance 659 1990 Weight 105 kg Results Laboratory Results: 02/25/17 05:21 02/25/17 06:32 Impressions: Abdomen/Pelvis CT 02/24/17 12:27 IMPRESSION: 1. Subsegmental atelectasis in the left lower lobe. 2. Nonobstructing 6 mm lower calyceal calculus right kidney. 3. No ureteral stone or obstruction. 4. Considerable ascites is present. Chest X-Ray 02/24/17 13:09 IMPRESSION: NO SIGNIFICANT RADIOGRAPHIC FINDING IN THE CHEST. Qualifiers PATEINT BEING DISCHARGED WITH ANY OF THE FOLLOWING DIAGNOSIS?: No Plan Time Spent: Less than 30 Minutes
[2017-02-26 20:50] VITALS: BP 95/59
== END 2017-02-26 22:38 | disposition hospice, inpatient (51) | DRG 442 ==
LOC: ER 12:03 → EH 16:12 → UNDOADMIN 16:22 → EH 16:22 → 3S 19:08
PROVIDERS: ADMIT Family Medicine; ATTEND Family Medicine
DX: K72.00 Acute and subacute hepatic failure without coma (principal); N17.9 Acute kidney failure, unspecified; E87.1 Hypo-osmolality and hyponatremia; G12.21 Amyotrophic lateral sclerosis; Z66 Do not resuscitate; F10.10 Alcohol abuse, uncomplicated; E87.6 Hypokalemia; R79.1 Abnormal coagulation profile; K74.60 Unspecified cirrhosis of liver; N20.0 Calculus of kidney; Z79.82 Long term (current) use of aspirin; Z82.49 Family history of ischemic heart disease and other diseases of the circulatory system
CPT/HCPCS: 36415; 71020; 74176; 80053; 80307; 81001; 82140; 82550; 82553; 83690; 83735; 84100; 84484; 85025; 85610; 87040; 87086; 99285; J2060; J3480; J3490; J7030